=== PATIENT | female | born 1955 | race Two or more races ===

== ENCOUNTER 2024-07-28 09:26 | Emergency (ER) | payer OTHER ==
[~2024-07-28] VITALS: Ht 162.6 cm; Wt 83.9 kg
[2024-07-28] MEDS ORDERED: NORVASC2.5 MG (10:15)
[2024-07-28] MEDS ORDERED: MOUNJARO2.5 MG/0.5 (10:15)
[2024-07-28] MEDS ORDERED: ATORVASTATIN CA40 MG (10:15)
[2024-07-28] MEDS ORDERED: LOSARTAN-HCTZ1 EAC1 (10:15)
[2024-07-28] MEDS ORDERED: LEVOTHYROXINE50 MCG (10:15)
[2024-07-28] MEDS ORDERED: FLONASE ALLERG9.9 ML NASAL (10:35)
[2024-07-28] MEDS ORDERED: MUCINEX DM ER1 EAC1 PO (10:35)
[2024-07-28] MEDS ORDERED: ZYRTEC10 M3 PO (10:35)
== END 2024-07-28 11:41 | disposition home or self-care (01) ==
LOC: ER 09:28
DX: J06.9 Acute upper respiratory infection, unspecified (principal); J00 Acute nasopharyngitis [common cold]; Z20.822 Contact with and (suspected) exposure to COVID-19; I10 Essential (primary) hypertension